=== PATIENT | female | born 1955 | race Caucasian/White ===

== ENCOUNTER → 2016-06-23 | Outpatient (CLI) | payer OTHER, BC ==
--- NOTE | 2016-06-23 09:25 | KCIC ---
PROCEDURE MRI left shoulder without contrast. HISTORY Fall. Left shoulder pain and limited range of motion. TECHNIQUE MRI of the left shoulder was performed without intravenous contrast. FINDINGS Acromioclavicular osteoarthritis is moderate. Small inferiorly directed spurs measure only 2 millimeters. There is mild lateral acromial downsloping. The acromion is type 2. Subacromial/subdeltoid bursitis is mild. There is a near full-thickness tear of the anterior supraspinatus insertion. The defect measures 1 centimeter anteroposteriorly and 1.1 centimeters in length. There is no retraction. This is superimposed on moderate to severe tendinopathy. A nondisplaced intrasubstance tear appears to tract more proximally at within the posterior supraspinatus tendon. The supraspinatus muscle is moderately atrophic without fatty infiltration. There is mild insertional infraspinatus and subscapularis tendinopathy. The long head biceps tendon is intact and located in the groove. There is a degenerative tear of the superior labrum extending to the posterior superior labrum. There is a tiny osteophyte along the inferior humeral articular surface. The glenohumeral articular cartilage demonstrates no focal defects. There is a trace glenohumeral effusion. Alignment is maintained. IMPRESSION - Near full-thickness tear of the anterior supraspinatus insertion measuring 1.1 x 1.0 centimeters, superimposed on severe tendinopathy. An intrasubstance tear may extend proximally within the more posterior supraspinatus fibers. The supraspinatus muscle is moderately atrophic without fatty infiltration. - Mild infraspinatus and subscapularis tendinopathy. - Moderate acromioclavicular osteoarthritis. Mild lateral acromial downsloping. Mild subacromial/subdeltoid bursitis. - Early glenohumeral osteoarthritis. Degenerative superior and posterior superior glenoid labral tear. Small joint effusion. Electronically signed by: Yuval Santana (Jun 23, 2016 09:23:56)
== END | disposition home or self-care (01) ==
LOC: KCIC MRI 07:41
PROVIDERS: ATTEND Orthopaedic Surgery
DX: M19.012 Primary osteoarthritis, left shoulder (principal); M25.462 Effusion, left knee; M75.52 Bursitis of left shoulder; S81.012A Laceration without foreign body, left knee, initial encounter
CPT/HCPCS: 73221

== ENCOUNTER → 2016-11-04 | Outpatient (CLI) | payer OTHER, BC ==
--- NOTE | 2016-11-04 09:38 | KCIC ---
History: Routine screening. Technique: Bilateral digital mammographic routine views were obtained with CAD - computer aided detection. Comparison: October 11, 2014. Findings: Breast Tissue Density B :The breast tissue is composed of mixed fatty and fibroglandular tissue. There are no suspicious masses, microcalcifications or areas of architectural distortion. Impression: Negative mammogram. BI-RADS Category 1: Negative. Normal interval followup. The patient will receive a letter with the results in the mail. Patient information is entered into the reminder system with a target due date for the next screening mammogram. The patient will receive a reminder. A mammogram does not have 100% sensitivity and therefore a negative imaging study should not delay further work up of a suspicious abnormality. "Our facility is accredited by the [employer] Mammography Program." Electronically signed by: Doug Joseph III, MD (11/04/2016 9:35 AM) [id number]
== END | disposition home or self-care (01) ==
LOC: KCIC MAMMO 08:16
PROVIDERS: ATTEND Nurse Practitioner Adult Health
DX: Z12.31 Encounter for screening mammogram for malignant neoplasm of breast (principal)
CPT/HCPCS: G0202; 77067

== ENCOUNTER → 2018-05-31 | Outpatient (CLI) | payer OTHER, BC ==
--- NOTE | 2018-05-31 17:36 | KCIC ---
Bilateral digital screening mammograms with 3-D tomosynthesis: Reason for examination: Routine screening. Comparison is made to previous studies dated back to 10/11/2014. Bilateral mammograms in CC and oblique projections were obtained with 2-D imaging and 3-D tomosynthesis imaging on a Siemens Inspiration unit and reviewed on the workstation. Interpretation was made with the benefit of CAD. The skin and nipples show no abnormalities. No abnormal axillary lymph nodes are seen. The breast parenchyma shows scattered fatty and fibroglandular density. (Breast density: Category B.) There continue to be nodular asymmetries. There are no new dominant masses, suspicious calcifications or architectural distortion. Benign calcifications are present. Impression: No evidence of malignancy. Recommend routine screening. BI-RAD Category 2: Benign. "Our facility is accredited by the [employer] Mammography Program." This patient's information has been entered into a reminder system for the patient to be notified with the results of her examination and a target date for the next mammogram. Electronically signed by: Celina Estrada MD (05/31/2018 5:33 PM) [id number]
== END | disposition home or self-care (01) ==
LOC: KCIC MAMMO 14:34
PROVIDERS: ATTEND Internal Medicine
DX: Z12.31 Encounter for screening mammogram for malignant neoplasm of breast (principal)
CPT/HCPCS: 77063; 77067

== ENCOUNTER → 2019-06-20 | Outpatient (CLI) | payer BC ==
--- NOTE | 2019-06-20 15:27 | KCIC ---
Bilateral digital screening mammograms with 3-D tomosynthesis: Reason for examination: Routine screening. Comparison is made to previous studies dated 05/31/2018 and 11/04/2016. Bilateral mammograms in CC and oblique projections were obtained with 2-D imaging and 3-D tomosynthesis imaging on a Siemens Inspiration unit and reviewed on the workstation. Interpretation was made with the benefit of CAD. The skin and nipples show no abnormalities. No abnormal axillary lymph nodes are seen. The breast parenchyma shows scattered fatty and fibroglandular density. (Breast density: Category B.) There are small nodular asymmetries which are unchanged. There are no new dominant masses, suspicious calcifications or architectural distortion. Benign calcifications are present. Impression: No evidence of malignancy. Recommend routine screening. BI-RAD Category 2: Benign. "Our facility is accredited by the [employer] Mammography Program." This patient's information has been entered into a reminder system for the patient to be notified with the results of her examination and a target date for the next mammogram. Electronically signed by: Celina Estrada MD (06/20/2019 3:25 PM) [id number]
--- NOTE | 2019-06-20 16:16 | KCIC ---
DEXA scan 06/20/2019 Clinical History: Postmenopausal female. Risk factors for osteoporosis. Technique: DEXA of the lumbar spine and left hip was performed. FINDINGS: No previous studies are available for comparison. The bone mineral density of the lumbar spine is 1.082 g/cm2 which corresponds with a T-score of 0.3 . This is within normal limits. The mean bone mineral density of the left hip is 0.8-9 g/sq cm. This corresponds to a T score of -0.9 . This is consistent with borderline osteopenia . By [employer] on Osteoporosis criteria, a T score of 0 to-1 SD is considered to be within normal limits. A T score of -1 to -2.5 SD is considered osteopenia. A T score less than -2.5 SD is considered osteoporosis Impression: 1. The mean bone mineral density lumbar spine is within normal limits. 2. Borderline osteopenia of the left hip. Electronically signed by: Sony Brink MD (06/20/2019 4:12 PM) [facility] [place]
--- NOTE | 2019-06-20 16:30 | KCIC ---
EXAM: Lumbar spine, 5 views. HISTORY: Pain. Fall. COMPARISON: None. FINDINGS: 5 views of the lumbar spine are obtained. There are 6 nonrib-bearing lumbar vertebral segments. There is mild lumbar dextroscoliosis. There is grade 1 anterolisthesis of L5 on L6 and L4 and L5. There is endplate remodeling at multiple levels. There are few small endplate Schmorl's nodes. There is facet arthropathy predominantly at the lumbosacral junction. IMPRESSION: 1. Multilevel degenerative change. 2. Mild lumbar scoliosis. 3. 6 nonrib-bearing lumbar vertebral segments, a normal variant. Electronically signed by: Marina Aragon MD (06/20/2019 4:27 PM) [id number]
--- NOTE | 2019-06-20 17:20 | KCIC ---
EXAM: Cervical spine, 6 views. HISTORY: Fall. Pain. Headaches. COMPARISON: None. FINDINGS: 6 views of the cervical spine are obtained. There is minimal retrolisthesis of C4 on C5 and C5 on C6. There is degenerative endplate remodeling with slight disc space narrowing at C5-C6 and C6-C7. There is facet arthropathy primarily at the mid and lower cervical levels. No fracture is seen. IMPRESSION: 1. Multilevel degenerative change. 2. No acute osseous finding. Electronically signed by: Marina Aragon MD (06/20/2019 5:17 PM) [id number]
== END | disposition home or self-care (01) ==
LOC: KCIC DEXA 10:10
PROVIDERS: ATTEND Internal Medicine
DX: Z12.31 Encounter for screening mammogram for malignant neoplasm of breast (principal); M54.2 Cervicalgia; N64.89 Other specified disorders of breast; Z78.0 Asymptomatic menopausal state
CPT/HCPCS: 72050; 72110; 77063; 77067; 77080